=== PATIENT | female | born 1985 | race Caucasian/White ===

== ENCOUNTER 2016-05-04 18:53 | Emergency (ER) | payer OTHER ==
[~2016-05-04] VITALS: Ht 162.6 cm; Wt 68.2 kg
[2016-05-04 18:56] VITALS: BP 140/101; PULSE 113; RESP 16; O2SAT 99
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
[2016-05-04] MEDS ORDERED: cefTRIAXone Inj 250 MG, Lidocaine PF 1% Inj 0.9 ML in Syringe 1 EACH IM ONE (19:45)
[2016-05-04 20:58] VITALS: BP 129/93; PULSE 97; RESP 18; O2SAT 95
[2016-05-04 21:06] VITALS: BP 129/93; PULSE 97; RESP 18; O2SAT 95
== END 2016-05-04 21:07 | disposition home or self-care (01) ==
LOC: SED 18:53
DX: T74.21XA Adult sexual abuse, confirmed, initial encounter (principal); T19.2XXA Foreign body in vulva and vagina, initial encounter; Z20.2 Contact with and (suspected) exposure to infections with a predominantly sexual mode of transmission; X58.XXXA Exposure to other specified factors, initial encounter; Y93.89 Activity, other specified; Y99.8 Other external cause status; Y92.013 Bedroom of single-family (private) house as the place of occurrence of the external cause; Y07.9 Unspecified perpetrator of maltreatment and neglect
CPT/HCPCS: 87210; 87491; 87591; 96372; 99284; J0696